=== PATIENT | male | born 1955 | race Caucasian/White ===

== ENCOUNTER 2017-05-09 09:09 | Outpatient (CLI) | payer OTHER ==
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
== END 2017-05-09 09:10 ==
LOC: RAD 09:09
PROVIDERS: ATTEND Family Medicine
DX: M79.661 Pain in right lower leg (principal)
CPT/HCPCS: 93971